=== PATIENT | male | born 1980 | race Caucasian/White ===

== ENCOUNTER 2019-10-17 11:23 | Inpatient (IN) | payer OTHER ==
[~2019-10-17] VITALS: Ht 190.5 cm; Wt 56.2 kg
[2019-10-17] MEDS ORDERED: BACLOFEN (11:44)
[2019-10-17] MEDS ORDERED: METHADONE (11:44)
[2019-10-17] MEDS ORDERED: KEPPRA (11:44)
[2019-10-17] MEDS ORDERED: CYMBALTA (11:44)
[2019-10-17] MEDS ORDERED: CLINDAMYCIN PHOSPHATE IV 600 MG in IV DEXTROSE 5% 100 ML IV ONE (11:45)
[2019-10-17] MEDS ORDERED: IV NORMAL SALINE 500 ML BAG IV ONE (12:00)
[2019-10-17 12:02] LABS: BASOPHILS # (AUTO) 0.1 K/uL (0.0-8.0); BASOPHILS % (AUTO) 0.7 % (0.0-2.0); EOSINOPHILS # (AUTO) 0.3 K/uL (0.0-0.7); EOSINOPHILS % (AUTO) 3.3 % (0.0-7.0); HEMATOCRIT 38.9 % (36.7-47.1); HEMOGLOBIN 12.8 g/dL (12.5-16.3); LYMPHOCYTES # (AUTO) 1.4 K/uL (20.0-40.0); LYMPHOCYTES % (AUTO) 18.6 % (20.5-51.5); MEAN CORPUSCULAR HEMOGLOBIN 27.1 uug (23.8-33.4); MEAN CORPUSCULAR HGB CONC 33 g/dL (32.5-36.3); MEAN CORPUSCULAR VOLUME 82.2 fL (73.0-96.2); MONOCYTES # (AUTO) 0.7 K/uL (2.0-10.0); MONOCYTES % (AUTO) 8.7 % (0.0-11.0); NEUTROPHILS # (AUTO) 5.2 K/uL (1.8-8.9); NEUTROPHILS % (AUTO) 68.7 % (38.5-71.5); PLATELET COUNT (AUTO) 305 K/uL (152-348); RED BLOOD CELL COUNT(AUTO) 4.73 MIL/uL (4.06-5.63); WHITE BLOOD COUNT (AUTO) 7.6 K/uL (3.6-10.2)
[2019-10-17] MEDS ORDERED: CLINDAMYCIN PHOSPHATE 600 MG/4 ML VIAL ONE (12:07)
[2019-10-17 12:10] LABS: CARBON DIOXIDE 32 mmol/L (21-32); CHLORIDE 101 mmol/L (98-107); CREATININE 0.6 mg/dL (0.6-1.3); GLUCOSE 131 mg/dL (74-106); POTASSIUM 3.4 mmol/L (3.5-5.1); UREA NITROGEN, BLOOD 18 mg/dL (7-18)
[2019-10-17 12:15] LABS: ACETAMINOPHEN < 2.0 ug/mL (10-30); ALANINE AMINOTRANSFERASE 30 U/L (16-63); ALKALINE PHOSPHATASE 103 U/L (50-136); ASPARTATE AMINOTRANSFERASE 25 U/L (15-37); BILIRUBIN,DIRECT 0.3 mg/dL (0.0-0.2); BILIRUBIN,TOTAL 1.4 mg/dL (0.2-1.0); TOTAL PROTEIN, SERUM 7.4 g/dL (6.4-8.2)
[2019-10-17] MEDS ORDERED: CEFTRIAXONE 2 G in IV DEXTROSE 5% 100 ML IV ONE (12:15)
[2019-10-17] MEDS ORDERED: PYRIDOSTIGMINE BROMIDE 60 MG TABLET PO ONE (12:15)
[2019-10-17 12:20] LABS: ETHANOL < 3 MG/DL (0-0)
[2019-10-17] MEDS ORDERED: CEFTRIAXONE 1 G VIAL ONE (12:23)
[2019-10-17 12:47] LABS: MAGNESIUM 1.6 mg/dL (1.8-2.4); PHOSPHOROUS 3.7 mg/dL (2.5-4.9)
--- NOTE | 2019-10-17 14:02 | NUR ---
Patient is resting comfortably in bed with eyes closed, NAD noted.
--- NOTE | 2019-10-17 16:48 | NUR ---
report given to Faraz urbina RN.
--- NOTE | 2019-10-17 17:14 | NUR ---
received report from ER nurse. vitals taken and stable. pt given a bedbath as patient is seen as unkempt. pt has skin tear on gluteal fold. no pressure ulcers seen upon assessment. will continue to monitor throughout shift.
[2019-10-17 17:30] VITALS: BP 107/77
[2019-10-17 17:54] VITALS: BP 107/77
[2019-10-17 20:28] VITALS: BP 109/75
[2019-10-17] MEDS ORDERED: LORAZEPAM 2 MG/1 ML VIAL IV PRN (21:15)
[2019-10-17] MEDS ORDERED: MORPHINE SULFATE 2 MG/1 ML DISP.SYRIN IV PRN (21:15)
[2019-10-17] MEDS ORDERED: ACETAMINOPHEN 650 MG SUPP.RECT RC PRN (21:15)
[2019-10-17] MEDS ORDERED: ONDANSETRON 4 MG/2 ML VIAL IV PRN (21:15)
[2019-10-17] MEDS ORDERED: PIPERACILLIN SODIUM/TAZOBACTAM 3.375 G in IV DEXTROSE 5% 50 ML IV SCH (22:00)
[2019-10-17] MEDS ORDERED: VANCOMYCIN 1000 MG VIAL ONE (22:44)
[2019-10-17] MEDS ORDERED: VANCOMYCIN HCL 500 MG VIAL ONE (22:45)
[2019-10-17] MEDS ORDERED: PIPERACILLIN/TAZOBACTAM/D5W 100 ML IV ONE (22:45)
[2019-10-17] MEDS: VANCOMYCIN IV 1,250 MG in IV DEXTROSE 5% 250 ML IV ONE ×2 (22:51→23:42)
--- NOTE | 2019-10-17 22:54 | NUR ---
spoke with kelly at [facility]. okay to give Zosyn two doses and Vancocin tonight. pharmacy will dose in the morning for next morning shift dose.
[2019-10-17] MEDS: POTASSIUM CHLORIDE 20 MEQ in IV D5/ 0.9% NACL 1,000 ML IV PRN ×2 (22:59→23:01)
[2019-10-17] MEDS: PIPERACILLIN/TAZOBACTAM/D5W 3.375 G in PREMIXED 1 EACH IV SCH (23:00)
--- NOTE | 2019-10-18 04:54 | NUR ---
patient asleep throughout night. no s/s of acute distress. v/s stable. IVP in tact and patent. NSR on tele monitor. denies SOB. NPO status remains. will continue to monitor and endorse care.
[2019-10-18] MEDS: PIPERACILLIN/TAZOBACTAM/D5W 3.375 G in PREMIXED 1 EACH IV SCH (06:11)
--- NOTE | 2019-10-18 06:12 | NUR ---
urine sent down to lab for UA.
[2019-10-18 07:10] LABS: *BLOOD, URINE NEGATIVE (NEGATIVE); *CLARITY,URINE CLEAR (CLEAR); *COLOR,URINE DARK YELLOW (YELLOW); *KETONES,URINE NEGATIVE (NEGATIVE); *UROBILINOGEN,URINE 0.2 E.U./dl (NORMAL); LEUKOCYTE ESTERASE ,URINE NEGATIVE (NEGATIVE); NITRITE, URINE NEGATIVE (NEGATIVE); UGLUCOSE NEGATIVE (NEGATIVE)
[2019-10-18 07:26] LABS: *BILIRUBIN,URIN 1+ (NEGATIVE)
[2019-10-18 07:30] LABS: *AMPHETAMINE, URINE POSITIVE (NEGATIVE); *BARBITURATE, URINE NEGATIVE (NEGATIVE); *CANNABINOID, URINE NEGATIVE (NEGATIVE); *COCCAINE, URINE NEGATIVE (NEGATIVE); *OPIATE, URINE POSITIVE (NEGATIVE); *PHENCYCLIDINE SCREEN,URINE NEGATIVE (NEGATIVE)
[2019-10-18 07:46] LABS: BACTERIA,URINE NONE SEEN /HPF (NONE SEEN); RBC,URINE 0-3 /HPF (0-3); SQUAMOUS EPITHELIAL CELL,UR FEW /HPF (NONE SEEN); URINE AMORPHOUS URATE FEW /HPF; WBC,URINE 0-3 /HPF (0-3)
[2019-10-18 07:47] LABS: MUCUS,URINE MODERATE /LPF (0-FEW)
[2019-10-18 08:36] VITALS: BP 114/84
[2019-10-18] MEDS ORDERED: PANTOPRAZOLE SODIUM 40 MG VIAL IV SCH (09:00)
[2019-10-18] MEDS ORDERED: levETIRAcetam IV 500 MG in IV DEXTROSE 5% 100 ML IV SCH (09:00)
[2019-10-18 09:19] LABS: EOSINOPHILS # (AUTO) 0.3 K/uL (0.0-0.7); HEMOGLOBIN 11.9 g/dL (12.5-16.3); LYMPHOCYTES # (AUTO) 0.9 K/uL (20.0-40.0); MONOCYTES # (AUTO) 0.3 K/uL (2.0-10.0); NEUTROPHILS # (AUTO) 3.3 K/uL (1.8-8.9)
[2019-10-18 09:24] LABS: BASOPHILS % (AUTO) 0.6 % (0.0-2.0); EOSINOPHILS % (AUTO) 5.7 % (0.0-7.0); HEMATOCRIT 36.3 % (36.7-47.1); LYMPHOCYTES % (AUTO) 18.7 % (20.5-51.5); MEAN CORPUSCULAR HGB CONC 33 g/dL (32.5-36.3); MEAN CORPUSCULAR VOLUME 82.7 fL (73.0-96.2); MONOCYTES % (AUTO) 6.8 % (0.0-11.0); NEUTROPHILS % (AUTO) 68.2 % (38.5-71.5); PLATELET COUNT (AUTO) 234 K/uL (152-348); RED BLOOD CELL COUNT(AUTO) 4.39 MIL/uL (4.06-5.63); WHITE BLOOD COUNT (AUTO) 4.8 K/uL (3.6-10.2)
[2019-10-18] MEDS ORDERED: MORPHINE SULFATE 4 MG/1 ML DISP.SYRIN IV PRN (09:30)
[2019-10-18 09:58] LABS: ALANINE AMINOTRANSFERASE 28 U/L (16-63); ALKALINE PHOSPHATASE 80 U/L (50-136); ASPARTATE AMINOTRANSFERASE 27 U/L (15-37); BILIRUBIN,TOTAL 1.1 mg/dL (0.2-1.0); CARBON DIOXIDE 31 mmol/L (21-32); CHLORIDE 106 mmol/L (98-107); CREATININE 0.5 mg/dL (0.6-1.3); GLUCOSE 122 mg/dL (74-106); PHOSPHOROUS 3.6 mg/dL (2.5-4.9); POTASSIUM 3.3 mmol/L (3.5-5.1); TOTAL PROTEIN, SERUM 6.2 g/dL (6.4-8.2); UREA NITROGEN, BLOOD 9 mg/dL (7-18)
[2019-10-18 10:00] LABS: MAGNESIUM 1.1 mg/dL (1.8-2.4)
--- NOTE | 2019-10-18 10:08 | NUR ---
Magnesium critical 1.1, reported to Derick Bañuelos NP. He will place orders.
[2019-10-18] MEDS ORDERED: POTASSIUM CHLORIDE 20 MEQ TAB.PRT.SR PO ONE (11:00)
[2019-10-18] MEDS ORDERED: MAGNESIUM SULFATE/D5W 100 ML IV SCH (11:00)
[2019-10-18] MEDS ORDERED: VANCOMYCIN IV 1,000 MG in IV DEXTROSE 5% 250 ML IV SCH (11:00)
--- NOTE | 2019-10-18 11:05 | NUR ---
Patient leaving AMA, saw him bedside, refer to note. Derick Bañuelos [employer] made aware. AMA form signed. Valuables returned to patient from safe, belongings accounted for. monitoring tech removed, IV access and wristband removed. Patient states that he does not want anyone to make his mother aware and if she calls do not give any info in regards to him. He states "But I am a nice son so I will call her myself later." Education provided, patient refused, attempted to discuss care with patient and he states "I do not care I am going anyway."
--- NOTE | 2019-10-18 11:58 | NUR ---
11:52am: This SW received an SS consultation. SW contacted Mela in case management to discuss patient's case prior to visiting patient. LAUR[facility] informed this SW that patient has left AMA. SW unable to complete this consultation request. No further SS interventions needed at this time.
== END 2019-10-18 11:30 | disposition left against medical advice (07) | DRG 143 ==
LOC: ER 11:23 → TELE3 16:33
PROVIDERS: ADMIT Nurse Practitioner Acute Care; ATTEND Nurse Practitioner Acute Care
DX: J95.02 Infection of tracheostomy stoma (principal); E43 Unspecified severe protein-calorie malnutrition; G92 Toxic encephalopathy; R64 Cachexia; G70.00 Myasthenia gravis without (acute) exacerbation; F05 Delirium due to known physiological condition; E88.09 Other disorders of plasma-protein metabolism, not elsewhere classified; E83.42 Hypomagnesemia; L03.221 Cellulitis of neck; E86.0 Dehydration; Z59.0 Homelessness; E03.9 Hypothyroidism, unspecified; E87.6 Hypokalemia; F41.9 Anxiety disorder, unspecified; Z91.19 Patient's noncompliance with other medical treatment and regimen; Z68.1 Body mass index [BMI] 19.9 or less, adult; Z73.6 Limitation of activities due to disability; L02.11 Cutaneous abscess of neck; D64.9 Anemia, unspecified; G40.909 Epilepsy, unspecified, not intractable, without status epilepticus; I25.2 Old myocardial infarction; F19.10 Other psychoactive substance abuse, uncomplicated; Y83.8 Other surgical procedures as the cause of abnormal reaction of the patient, or of later complication, without mention of misadventure at the time of the procedure; Y72.8 Miscellaneous otorhinolaryngological devices associated with adverse incidents, not elsewhere classified; Y92.009 Unspecified place in unspecified non-institutional (private) residence as the place of occurrence of the external cause
CPT/HCPCS: 36415; 70360; 71045; 80307; 80329; 83735; 84100; 84443; 84481; 85025; 85610; 85651; 86140; 87040; 87086; 93005; A4663; C9113; G0378; G0480; G0480-TC; J0696; J1953; J2543; J3370; J3480; J3490; J7030; J7042; J7060

== ENCOUNTER 2019-12-25 02:42 | Emergency (ER) | payer SELFPAY ==
[~2019-12-25 02:42] MED LIST: BACLOFEN; CYMBALTA; KEPPRA; METHADONE
--- NOTE | 2019-12-25 03:04 | NUR ---
Patient left without being seen or traige.
== END 2019-12-25 03:04 | disposition left against medical advice (07) ==
LOC: ER 02:47
DX: Z75.3 Unavailability and inaccessibility of health-care facilities (principal)

== ENCOUNTER 2019-12-26 17:18 | Emergency (ER) | payer OTHER ==
[~2019-12-26] VITALS: Ht 190.5 cm; Wt 59.0 kg
--- NOTE | 2019-12-26 17:30 | NUR ---
Dr Fuller at the bedside for MSE.
[2019-12-26] MEDS ORDERED: SULFAMETH/TRIMETH 800/160 MG TABLET ONE (17:37)
[2019-12-26 17:44] VITALS: BP 127/74
[2019-12-26] MEDS ORDERED: SULFAMETH/TRIMETH 800/160 MG TABLET PO ONE (17:45)
--- NOTE | 2019-12-26 17:49 | NUR ---
Patient given written and verbal discharge instructions. Patient verbalizes understanding of instructions. Patient is ambulatory with steady gait. Refuses offer of long-term placement. Patient given list of available shelters in surrounding area.
== END 2019-12-26 17:49 | disposition home or self-care (01) ==
LOC: ER 17:20
DX: L02.414 Cutaneous abscess of left upper limb (principal); L02.413 Cutaneous abscess of right upper limb; Z59.0 Homelessness; G70.00 Myasthenia gravis without (acute) exacerbation; I25.2 Old myocardial infarction; Z79.899 Other long term (current) drug therapy
CPT/HCPCS: A4663

== ENCOUNTER 2020-01-30 04:30 | Emergency (ER) | payer OTHER ==
--- NOTE | 2020-01-30 04:53 | NUR ---
While triaging patient, patient walked out and stated that he does not want to be seen today.
== END 2020-01-30 04:54 | disposition home or self-care (01) ==
LOC: ER 04:33
DX: Z75.3 Unavailability and inaccessibility of health-care facilities (principal)

== ENCOUNTER 2020-11-21 19:24 | Emergency (ER) | payer OTHER ==
[~2020-11-21] VITALS: Ht 190.5 cm; Wt 83.0 kg
--- NOTE | 2020-11-21 20:10 | NUR ---
Dr. Ambrocio at bedside for MSE.
--- NOTE | 2020-11-21 20:13 | NUR ---
Patient eloped from facility. ER physician aware. Patient didn't want to continue with any treatment and just wants to leave.
== END 2020-11-21 20:16 | disposition left against medical advice (07) ==
LOC: ER 19:40
DX: R60.0 Localized edema (principal); F11.10 Opioid abuse, uncomplicated; Z86.69 Personal history of other diseases of the nervous system and sense organs
CPT/HCPCS: A4663